=== PATIENT | male | born 2000 | race Caucasian/White ===

== ENCOUNTER 2025-05-24 21:11 | Emergency (ER) | payer BC | END 2025-05-24 22:15 | disposition home or self-care (01) | LOC: JD.ED 21:11 | DX: S01.81XA Laceration without foreign body of other part of head, initial encounter (principal); W22.8XXA Striking against or struck by other objects, initial encounter; Y93.89 Activity, other specified | CPT/HCPCS: 12011; 99282; J2003; 99283 ==